=== PATIENT | female | born 1950 | race Caucasian/White ===

== ENCOUNTER → 2021-01-15 | Outpatient (CLI) | payer MEDICARE | LOC: CARD 12:32 | PROVIDERS: ATTEND Physician Assistant | DX: I48.91 Unspecified atrial fibrillation (principal); I11.9 Hypertensive heart disease without heart failure; I34.0 Nonrheumatic mitral (valve) insufficiency | CPT/HCPCS: 93306 ==

== ENCOUNTER → 2021-02-02 | Outpatient (CLI) | payer MEDICARE ==
[~2021-02-02] VITALS: Ht 162 cm; Wt 82.0 kg
[~2021-02-02] MED LIST: REGADENOSON 0.4 MG/5 ML SYR (LEXISCAN) IV ONE
[2021-02-02] MEDS: CATHETER FLUSH 10 ML SYR IV PRN ×2 (07:38→09:25)
[2021-02-02 09:24] VITALS: BP 134/89
--- NOTE | 2021-02-05 08:27 | Cardiology Stress Test Report ---
Stress Test Report Date of Procedure/Referring: Date of Procedure: February 05, 2021 Tomasa Mirza Admitting Physician Center/[facility] Indications: Atrial fibrillation Baseline Heart Rate: 86 Baseline Blood Pressure: Blood Pressure Systolic: 134 Blood Pressure Diastolic: 89 Baseline Vitals Vital Signs Date Time Temp Pulse Resp B/P (MAP) Pulse Ox O2 Delivery O2 Flow Rate FiO2 02/02/21 09:24 82 16 134/89 (104) 98 Room Air Baseline EKG: Baseline EKG: Atrial fibrillation Summary After explaining the procedure to the patient, she signed a consent and then brought to the stress nuclear laboratory. Patient received 0.4 mg Lexiscan for stress test, ECG, heart rate and blood pressure were monitored continuously. Resting and stress dose of radio tracer were injected, imaging was acquired and reviewed in short axis, horizontal long axis and vertical long axis views. TID: 0.93 SSS: 4 SDS: 4 EF: 64 1. Patient tolerated Lexiscan well 2. Breast attenuation with mild decrease uptake at the base of the anterior wall and anteroseptum, probably secondary to the breast attenuation, no significant ischemia or infarction on SPECT images 3. Normal left ventricular size, EF 64%, gated images are unreliable due to underlying atrial fibrillation MONIQUE DAILY MD February 05, 2021 08:26
== END ==
LOC: CARD 07:30
PROVIDERS: ATTEND Physician Assistant
DX: I48.91 Unspecified atrial fibrillation (principal); I10 Essential (primary) hypertension
CPT/HCPCS: 78452; 93017; A9502

== ENCOUNTER → 2021-02-05 | Outpatient (CLI) | payer MEDICARE ==
[~2021-02-05] MED LIST changes: +AMIO200T6 PO; +APIX5TAB PO; +ATOR10TA66 PO; +DAPA10TA PO; +DULO30CA49 PO; +LOSA50TA63 PO; +METO50TA15 PO; -REGADENOSON 0.4 MG/5 ML SYR (LEXISCAN) IV ONE
== END ==
LOC: LABNPT 08:08
PROVIDERS: ATTEND Internal Medicine Cardiovascular Disease
DX: Z20.822 Contact with and (suspected) exposure to COVID-19 (principal)
CPT/HCPCS: 87635

== ENCOUNTER 2021-02-07 09:10 | Day surgery (SDC) | payer MEDICARE ==
[2021-02-07] VITALS (12 sets, daily range): BP systolic 106–170; BP diastolic 68–115
[~2021-02-07] VITALS: Ht 163 cm; Wt 83.3 kg
[2021-02-07] MEDS ORDERED: NS IV 1000 ML 1,000 ML ONE (09:49)
[2021-02-07] MEDS ORDERED: LIDOCAINE 2% VISCOUS 15 ML UDC ONE (09:49)
[2021-02-07] MEDS ORDERED: fentaNYL INJ 100 MCG/2 ML AMP IV ONE (10:00)
[2021-02-07] MEDS ORDERED: LIDOCAINE 2% VISCOUS 15 ML UDC PO ONE (10:00)
[2021-02-07] MEDS ORDERED: MIDAZOLAM 5 MG/5 ML (VERSED) VIAL IV ONE (10:00)
--- NOTE | 2021-02-07 10:18 | Diagnostic Imaging Report ---
Portable erect AP chest at 1013. INDICATION: Afibrillation hypertension There are no prior studies available for comparison. The heart size is at the upper limits of normal. The lungs are clear. There is no evidence for failure, pneumonia or for a pleural effusion to indicate an acute abnormality. The mediastinum is not widened. The osseous structures are intact. IMPRESSION: There is no evidence for active disease. Dictated by: Dictated on workstation # [id number]
[2021-02-07 10:29] LABS: BILIRUBIN,URINE NEGATIVE (NEGATIVE); CLARITY,URINE CLEAR; COLOR,URINE YELLOW; GLUCOSE, URINE (UA) 3+ (NEGATIVE); KETONES,URINE NEGATIVE (NEGATIVE); LEUKOCYTE ESTERASE ,URINE NEGATIVE (NEGATIVE); NITRITE,URINE NEGATIVE (NEGATIVE); PROTEIN,URINE TRACE (NEGATIVE)
[2021-02-07] MEDS ORDERED: METO50TA15 PO (10:30)
[2021-02-07] MEDS ORDERED: APIX5TAB PO (10:30)
[2021-02-07] MEDS: NS IV 1000 ML 1,000 ML IV SCH ×2 (10:30→19:58)
[2021-02-07] MEDS ORDERED: LOSA50TA63 PO (10:30)
[2021-02-07] MEDS ORDERED: ATOR10TA66 PO (10:30)
[2021-02-07] MEDS ORDERED: DAPA10TA PO (10:30)
[2021-02-07] MEDS ORDERED: DULO30CA49 PO (10:30)
[2021-02-07 10:36] LABS: HEMOGLOBIN 16.3 g/dL (11.5-16.0); MEAN PLATELET VOLUME 10.9 fL (9.0-12.2); WHITE BLOOD COUNT 9.1 10^3/uL (4.3-11.0)
[2021-02-07 10:40] LABS: BACTERIA,URINE NEGATIVE /HPF; SQUAMOUS EPITHELIAL CELL,UR 0-2 /HPF
[2021-02-07] MEDS ORDERED: proPOfol 200 MG/20 ML (DIPRIVAN) VIAL IV ONE (10:40)
[2021-02-07] MEDS ORDERED: MIDAZOLAM 2 MG/2 ML (VERSED) VIAL ONE (10:40)
[2021-02-07 10:43] LABS: INR 0.9 (0.8-1.4); PROTHROMBIN TIME PATIENT 12.8 SEC (12.2-14.7)
[2021-02-07 10:50] LABS: ALANINE AMINOTRANSFERASE 13 U/L (0-55); ALBUMIN 3.9 GM/DL (3.2-4.5); ALKALINE PHOSPHATASE 86 U/L (40-136); BILIRUBIN,TOTAL 0.7 MG/DL (0.1-1.0); BUN/CREATININE RATIO 11; CALCIUM 9.6 MG/DL (8.5-10.1); CARBON DIOXIDE 26 MMOL/L (21-32); CHLORIDE 104 MMOL/L (98-107); CHOLESTEROL 222 MG/DL (< 200); GFR ESTIMATED > 60; GLUCOSE 174 MG/DL (70-105); HDL CHOLESTEROL 42 MG/DL (40-60); POTASSIUM 3.6 MMOL/L (3.6-5.0); SODIUM 141 MMOL/L (135-145); TOTAL PROTEIN 7.4 GM/DL (6.4-8.2); TRIGLYCERIDES 256 MG/DL (<150); VLDL CHOLESTEROL 51 MG/DL (5-40)
--- NOTE | 2021-02-07 11:29 | Anesthesia-General Post-Op ---
MAC Patient Condition Mental Status/LOC: Same as Preop Cardiovascular: Satisfactory Nausea/Vomiting: Absent Respiratory: Satisfactory Pain: Controlled Complications: Absent Post Op Complications Complications None Follow Up Care/Instructions Patient Instructions None needed. Anesthesiology Discharge Order Discharge Order Patient is doing well, no complaints, stable vital signs, no apparent adverse anesthesia problems. No complications reported per nursing. IGOR ROYAL CRNA February 07, 2021 11:29
[2021-02-07] MEDS ORDERED: AMIODARONE INJECTION 150 MG in D5W 100 ML IVPB 100 ML IV ONE (11:30)
--- NOTE | 2021-02-07 11:33 | Conscious Sedation/ASA ---
Conscious Sedation Pre-Proced Time 11:00 ASA Score 3 For ASA 3 and 4: Consider anesthesia and medical clearance. Also, for patients with a history of failed moderate sedation consider anesthesia. Airway Lungs Heart ASA score ASA 1: a normal healthy patient ASA 2: a patient with a mild systemic disease (mid diabetes, controlled hypertension, obesity x ASA 3: a patient with a severe systemic disease that limits activity (angina, COPD, prior Myocardial infarction) ASA 4: a patient with an incapacitating disease that is a constant threat to life (CHF, renal failure) ASA 5: a moribund patient not expected to survive 24 hrs. (ruptured aneurysm) ASA 6: a declared brain- patient whose organs are being harvested. For emergent operations, add the letter E after the classification Mallampati Classification Grade 3 Sedation Plan Analgesia, Amnesia, Plan communicated to team members, Discussed options with patient/fam, Discussed risks with patient/fam The patient is an appropriate candidate to undergo the planned procedure, sedation, and anesthesia. The patient immediately re-assessed prior to indication. MONIQUE DAILY MD February 07, 2021 11:33 am
--- NOTE | 2021-02-07 11:35 | Cardioversion ---
Cardioversion PROCEDURE PHYSICIAN: Monique Kidd DATE OF PROCEDURE: 02/07/21 DIRECT EXTERNAL ELECTRICAL CARDIOVERSION: Indications: Atrial Fibrillation with rapid ventricular rate Preoperative diagnoses: Atrial Fibrillation with rapid ventricular rate Postoperative diagnosis: Sinus rhythm, Successful Electrical Cardioversion Anesthesia: By Anesthesia services Complications: None Specimen: None Contrast: 0 Flouroscopy: none Procedure Details: The patient was brought the cardiac catheterization technician after informed consent was taken, all the risks and complications were explained including the risk of stroke. Electrical cardioversion was carried out with anesthesia support with propofol. 200 joules of synchronized shock was delivered through external patches which promptly restored sinus rhythm. The patient tolerated the procedure well. Conclusions: Successful electrical cardioversion with no complication Final Diagnosis: Paroxysmal atrial fibrillation Hypertension Hyperlipidemia MONIQUE KIDD MD February 07, 2021 11:35 am
[2021-02-07] MEDS ORDERED: AMIO200T6 PO (11:37)
--- NOTE | 2021-02-07 11:38 | Discharge Inst-Post CATH ---
Discharge Inst-CATH/EP Problems Reviewed?: Yes Post Cardiac Cath/EP D/C Inst Follow Up/Plan Appointment with Dr. Kidd's office in 1 to 2 weeks <b>CARDIAC CATH/EP PROCEDURE DISCHARGE INSTRUCTIONS</b> ACTIVITY * Go Home directly and rest. * Limit activity of the leg (or wrist if it was used) for 7 days including aer obics, swimming, jogging, bicycling, etc. * Restrict stair-climbing for 7 days if possible, if not, climb up with your non-cath leg, then bring together on the same step. * Avoid lifting, pushing, pulling or excessive movement of the affected extremi ty for 7 days. * Customary sexual activity may be resumed after 2 days-use caution not to use a position that strains or causes pain to the affected extremity. * No driving for 24 hours. * NO SMOKING. * Avoid straining for bowel movements for 7 days. * Gentle walking on level ground is allowed. * Returning to work will depend on the type of procedure and the results. Your doctor will discuss this with you. CALL YOUR DOCTOR FOR ANY OF THE FOLLOWING: *If bleeding from the puncture site occurs- Apply gentle pressure to site with clean cloth and call your doctor or EMS. * If a knot or lump forms under the skin, increases in size, or causes pain. * If bruising appears to be worsening or moving further down your leg instead of disappearing. * Temperature above 101 F. CARE OF YOUR GROIN INCISION; * Bruising or purple discoloration of the skin near the puncture site is common. * You may shower only, no bathtub bathing for 5 days. Be careful to avoid slipping as your leg may feel stiff. * If a closure device was used on your femoral artery, please see the attached guide regarding care of the device and your leg. * Leave dressing on FOR 24 hours. CARE OF YOUR WRIST INCISION; * Bruising or purple discoloration of the skin near the puncture site is common. * You may shower. * DO NOT submerge wrist. * Leave dressing on FOR 24 hours. MONIQUE KIDD MD February 07, 2021 11:38 am
[2021-02-07] MEDS: AMIODARONE 200 MG (CORDARONE) TAB PO SCH ×2 (11:53→20:03)
[2021-02-07] MEDS ORDERED: AMIODARONE INJECTION 450 MG in D5W IV SOLUTION (EXCEL) 250 ML IV SCH (12:45)
[2021-02-07] MEDS: APIXABAN 5 MG (ELIQUIS) TABLET PO SCH (20:03)
[2021-02-07] MEDS: meTOprolol TARTRATE 50 MG (LOPRESSOR) TAB PO SCH (20:03)
[2021-02-07] MEDS ORDERED: hydrALAZINE (APESOLINE) 20 MG/ML VIAL ONE (22:03)
[2021-02-07] MEDS: hydrALAZINE (APESOLINE) 20 MG/ML VIAL IV PRN (22:15)
[2021-02-08 03:22] LABS: BASOPHILS % (AUTO) 0 % (0-10); EOSINOPHILS # (AUTO) 0.1 10^3/uL (0.0-0.3); EOSINOPHILS % (AUTO) 1 % (0-10); HEMATOCRIT 44 % (35-52); HEMOGLOBIN 14.9 g/dL (11.5-16.0); LYMPHOCYTES % (AUTO) 21 % (12-44); MEAN CORPUSCULAR HEMOGLOBIN 31 pg (25-34); MEAN CORPUSCULAR HGB CONC 34 g/dL (32-36); MEAN CORPUSCULAR VOLUME 92 fL (80-99); MEAN PLATELET VOLUME 11.1 fL (9.0-12.2); MONOCYTES # (AUTO) 0.5 10^3/uL (0.0-1.0); MONOCYTES % (AUTO) 5 % (0-12); NEUTROPHILS # (AUTO) 6.5 10^3/uL (1.8-7.8); NEUTROPHILS % (AUTO) 71 % (42-75); PLATELET COUNT 250 10^3/uL (130-400); WHITE BLOOD COUNT 9.2 10^3/uL (4.3-11.0)
[2021-02-08 03:42] LABS: CHLORIDE 107 MMOL/L (98-107); POTASSIUM 3.2 MMOL/L (3.6-5.0); SODIUM 140 MMOL/L (135-145)
[2021-02-08 03:44] LABS: GLUCOSE 163 MG/DL (70-105)
[2021-02-08 03:45] LABS: CARBON DIOXIDE 23 MMOL/L (21-32)
[2021-02-08 03:47] LABS: PHOSPHORUS 3.4 MG/DL (2.3-4.7)
[2021-02-08 03:48] LABS: CREATININE SERUM 0.72 MG/DL (0.60-1.30); GFR ESTIMATED > 60
[2021-02-08 03:49] LABS: BUN/CREATININE RATIO 13
[2021-02-08 03:50] LABS: MAGNESIUM 1.8 MG/DL (1.6-2.4)
[2021-02-08] MEDS: NS IV 1000 ML 1,000 ML IV SCH (03:52)
[2021-02-08] MEDS: hydrALAZINE (APESOLINE) 20 MG/ML VIAL IV PRN (05:53)
[2021-02-08] MEDS ORDERED: MAGNESIUM 1 GM/100 ML IVPB 100 ML IV SCH (06:00)
[2021-02-08] MEDS ORDERED: KCL 20 MEQ TAB (K-DUR) PO SCH (06:00)
[2021-02-08] MEDS ORDERED: POTASSIUM CL 10MEQ/50ML IVPB 50 ML IV SCH (06:00)
[2021-02-08] MEDS ORDERED: NS IV 500 ML 0 ML ONE (07:48)
--- NOTE | 2021-02-08 07:54 | Cardiology Progress Note ---
Subjective Date Seen by Provider: February 08, 2021 Time Seen by Provider: 07:53 Subjective/Events-last exam Patient is laying down in bed, feeling well, back in atrial fibrillation with controlled rate Review of Systems General: No Chills, No Night Sweats; Fatigue; No Malaise, No Appetite, No Other HEENT: No Head Aches, No Visual Changes, No Eye Pain, No Ear Pain, No Dys phasia, No Sinus Congestion, No Post Nasal Drip, No Sore Throat, No Other Pulmonary: No Dyspnea, No Cough, No Pleuritic Chest Pain, No Other Cardiovascular: No: Chest Pain, Palpitations, Orthopnea, Paroxysmal Noc. Dyspnea, Edema, Lt Headedness, Other Objective-Cardiology Exam Last Set of Vital Signs Vital Signs 02/07/21 02/08/21 02/08/21 11:29 05:54 07:36 Temp 36.6 Pulse 62 Resp 16 B/P (MAP) 177/86 (116) Pulse Ox 94 O2 Delivery Room Air O2 Flow Rate 6.00 Capillary Refill : I&O Intake and Output 02/08/21 00:00 Intake Total 659 ml Output Total 200 ml Balance 459 ml Intake Oral 400 ml IV Total 259 ml Output Urine Total 200 ml # Voids 1 General: Alert, Oriented X3, Cooperative HEENT: Atraumatic, PERRLA Neck: Supple, No JVD, No Thyromegaly Lungs: Clear to Auscultation, Normal Air Movement Heart: Normal S1, Normal S2, No Murmurs, Other (Atrial fibrillation) Abdomen: Normal Bowel Sounds, Soft, No Tenderness, No Hepatosplenomegaly, No Masses Extremities: No Clubbing, No Cyanosis, No Edema, Normal Pulses, No Tendern ess/Swelling Skin: No Rashes, No Breakdown, No Significant Lesion Neuro: Normal Gait, Normal Speech, Strength at 5/5 X4 Ext, Normal Tone, Sensation Intact Psych/Mental Status: Mental Status NL, Mood NL Results Lab Laboratory Tests 02/07/21 10:22 02/08/21 02:49 A/P-Cardiology Admission Diagnosis Paroxysmal atrial fibrillation Hypertension Hyperlipidemia Assessment/Plan Paroxysmal atrial fibrillation underwent GAUTAM with electrical cardioversion yesterday, converted to sinus rhythm then return to atrial fibrillation, she was loaded with amiodarone IV bolus and a drip in addition to the oral dose. It appeared that she has been in and out of atrial fibrillation alternating with sinus rhythm. I would continue with amiodarone loading as an outpatient Hypertension, continue to monitor blood pressure Hyperlipidemia, monitor lipids Hypokalemia, being replaced Possible underlying sleep apnea, will consider sleep study as an outpatient MONIQUE DAILY MD February 08, 2021 07:54
--- NOTE | 2021-02-08 07:59 | Conscious Sedation/ASA ---
Conscious Sedation Pre-Proced Time 07:58 ASA Score 3 For ASA 3 and 4: Consider anesthesia and medical clearance. Also, for patients with a history of failed moderate sedation consider anesthesia. Airway Lungs Heart ASA score ASA 1: a normal healthy patient ASA 2: a patient with a mild systemic disease (mid diabetes, controlled hypertension, obesity x ASA 3: a patient with a severe systemic disease that limits activity (angina, COPD, prior Myocardial infarction) ASA 4: a patient with an incapacitating disease that is a constant threat to life (CHF, renal failure) ASA 5: a moribund patient not expected to survive 24 hrs. (ruptured aneurysm) ASA 6: a declared brain- patient whose organs are being harvested. For emergent operations, add the letter E after the classification Mallampati Classification Grade 3 Sedation Plan Analgesia, Amnesia, Plan communicated to team members, Discussed options with patient/fam, Discussed risks with patient/fam The patient is an appropriate candidate to undergo the planned procedure, sedation, and anesthesia. The patient immediately re-assessed prior to indication. MONIQUE DAILY MD February 08, 2021 07:59
[2021-02-08] MEDS ORDERED: KCL 20 MEQ TAB (K-DUR) PO ONE ×2 (08:00→11:00)
[2021-02-08] MEDS: POTASSIUM CL 10MEQ/50ML IVPB 50 ML IV SCH (08:18)
[2021-02-08] MEDS: APIXABAN 5 MG (ELIQUIS) TABLET PO SCH (08:36)
[2021-02-08] MEDS: meTOprolol TARTRATE 50 MG (LOPRESSOR) TAB PO SCH (08:36)
[2021-02-08] MEDS: AMIODARONE 200 MG (CORDARONE) TAB PO SCH (08:36)
[2021-02-08] MEDS ORDERED: NON-FORMULARY MEDICATION 1 EA EA (Dapagliflozin Propanediol (Farxiga) 10 MG) PO SCH (09:00)
[2021-02-08] MEDS ORDERED: DULoxetine 30 MG (CYMBALTA) CAP PO SCH (09:00)
[2021-02-08] MEDS ORDERED: LOSARTAN 50 MG (COZAAR) TAB PO SCH (09:00)
== END 2021-02-08 11:40 | disposition home or self-care (01) ==
LOC: CATH 09:10 → ICU 12:36 → CATH 02-08 11:40
PROVIDERS: ATTEND Internal Medicine Cardiovascular Disease
DX: I48.0 Paroxysmal atrial fibrillation (principal); I10 Essential (primary) hypertension; E78.2 Mixed hyperlipidemia; Z79.01 Long term (current) use of anticoagulants; Z79.899 Other long term (current) drug therapy
CPT/HCPCS: 36415; 71045; 80048; 80053; 80061; 81000; 83735; 84100; 85025; 85027; 85610; 85730; 87081; 87088; 92960; 93005; 93312

== ENCOUNTER 2021-10-23 05:34 | Outpatient (CLI) | payer MEDICARE ==
[~2021-10-23] VITALS: Ht 162.5 cm; Wt 90.0 kg
[~2021-10-23 05:34] MED LIST changes: -AMIO200T6 PO; +AMIO200T65 PO
[2021-10-23] MEDS ORDERED: SEMA7TAB PO (09:05)
== END 2021-12-18 17:35 | disposition home or self-care (01) ==
LOC: PREOP 05:34
PROVIDERS: ATTEND Specialist
DX: Z01.818 Encounter for other preprocedural examination (principal)

== ENCOUNTER 2021-12-07 06:09 | Day surgery (SDC) | payer MEDICARE ==
[~2021-12-07] VITALS: Ht 162.5 cm; Wt 90.0 kg
[~2021-12-07 06:09] MED LIST changes: +SEMA7TAB PO
[2021-12-07] MEDS ORDERED: TIMOLOL MALEATE 0.5% 5 ML (TIMOPTIC) BTL OU PRN (06:15)
[2021-12-07] MEDS ORDERED: MOXIFLOXACIN OPHTH SOLN 5 MG/ML 0.3 ML SYRINGE OP ONE (06:15)
[2021-12-07] MEDS ORDERED: LIDOCAINE PF 1% 2 ML VIAL IR PRN (06:15)
[2021-12-07] MEDS ORDERED: POVIDONE (BETADINE) OPHTH SOLN 5% 30 ML OP ONE (06:15)
[2021-12-07 06:28] VITALS: BP 199/103
[2021-12-07] MEDS: TETRACAINE 0.5% OPHTH SOLN 4 ML BTL (SINGLE DOSE ONLY) OU PRN ×4 (06:29→06:50)
[2021-12-07] MEDS: TROPICAMIDE 1% OPH SOLN (MYDRIACYL) 15 ML BTL OP SCH ×3 (06:37→06:50)
[2021-12-07] MEDS: PHENYLEPHRINE 10% OPHTH (NEO-SYN) 5 ML BTL OU SCH ×3 (06:37→06:50)
--- NOTE | 2021-12-07 06:52 | Ophthalmologist Pre-Op Note ---
Pre-Operative Progress Note H&P Reviewed The H&P was reviewed, patient examined and no changes noted. Date H&P Reviewed: Dec 07, 2021 Time H&P Reviewed: 06:52 Pre-Op Dx Cataract, Right Eye MAGDA HERNÁNDEZ MD Dec 07, 2021 06:52
--- NOTE | 2021-12-07 07:19 | Ophthalmology Operative Report ---
Cataract removal/placement IOL PREOPERATIVE DIAGNOSIS: Cataract Right Eye POSTOPERATIVE DIAGNOSIS: Cataract Right Eye PROCEDURE: Cataract removal and placement of posterior chamber implant, right eye SURGEON: Mikhail Hernández ANESTHESIA: Topical with sedation COMPLICATIONS: None ESTIMATED BLOOD LOSS: Minimal DESCRIPTION OF PROCEDURE: After proper informed consent was obtained, the patient, a 71 female, was taken to the Operating Room and the right eye was anesthetized with tetracaine. The right eye was then prepped and draped in the usual manner. A wire lid speculum was placed. A paracentesis was made at the left hand position. Preservative free lidocaine was injected into the anterior chamber followed by viscoelastic. A clear corneal incision was made in the temporal position. A capsulorrhexis was preformed and the central nuclear and cortical material were removed. The posterior capsule was polished and Nathaniel 28.0 AU00T0 IOL was placed into the capsular bag. The residual viscoelastic was aspirated and balanced saline solution was injected into the anterior chamber. Moxifloxacin was injected into the anterior chamber. The wound was checked and found to be water tight. The patient tolerated the procedure well without complications. MIKHAIL HERNÁNDEZ MD Dec 07, 2021 07:19
[2021-12-07] MEDS ORDERED: acetaZOLAMIDE ER 500 MG CAP (DIAMOX SEQUELS) PO ONE (07:30)
[2021-12-07 07:32] VITALS: BP 206/106
--- NOTE | 2021-12-07 11:53 | Anesthesia-General Post-Op ---
MAC Patient Condition Mental Status/LOC: Same as Preop Cardiovascular: Satisfactory Nausea/Vomiting: Absent Respiratory: Satisfactory Pain: Controlled Complications: Absent Post Op Complications Complications None Follow Up Care/Instructions Patient Instructions None needed. Anesthesiology Discharge Order Discharge Order Patient is doing well, no complaints, stable vital signs, no apparent adverse anesthesia problems. No complications reported per nursing. DOMENICA YATES CRNA Dec 07, 2021 11:53
== END 2021-12-07 07:32 | disposition home or self-care (01) ==
LOC: SDC 06:09
PROVIDERS: ATTEND Specialist
DX: E11.36 Type 2 diabetes mellitus with diabetic cataract (principal); H25.9 Unspecified age-related cataract; Z79.84 Long term (current) use of oral hypoglycemic drugs
CPT/HCPCS: 66984; V2632

== ENCOUNTER 2021-12-21 06:24 | Day surgery (SDC) | payer MEDICARE ==
[~2021-12-21] VITALS: Ht 163 cm; Wt 90.0 kg
[2021-12-21] MEDS ORDERED: POVIDONE (BETADINE) OPHTH SOLN 5% 30 ML OP ONE (06:30)
[2021-12-21] MEDS ORDERED: LIDOCAINE PF 1% 2 ML VIAL IR PRN (06:30)
[2021-12-21] MEDS ORDERED: TIMOLOL MALEATE 0.5% 5 ML (TIMOPTIC) BTL OU PRN (06:30)
[2021-12-21] MEDS ORDERED: MOXIFLOXACIN OPHTH SOLN 5 MG/ML 0.3 ML SYRINGE OP ONE (06:30)
[2021-12-21] MEDS: TETRACAINE 0.5% OPHTH SOLN 4 ML BTL (SINGLE DOSE ONLY) OU PRN ×4 (06:40→07:00)
[2021-12-21 06:44] VITALS: BP 186/94
[2021-12-21] MEDS: PHENYLEPHRINE 10% OPHTH (NEO-SYN) 5 ML BTL OU SCH ×3 (06:49→07:00)
[2021-12-21] MEDS: TROPICAMIDE 1% OPH SOLN (MYDRIACYL) 15 ML BTL OP SCH ×3 (06:49→07:00)
--- NOTE | 2021-12-21 07:59 | Ophthalmologist Pre-Op Note ---
Pre-Operative Progress Note H&P Reviewed The H&P was reviewed, patient examined and no changes noted. Date H&P Reviewed: Dec 21, 2021 Time H&P Reviewed: 07:58 Pre-Op Dx Cataract, Right Eye MAGDA HERNÁNDEZ MD Dec 21, 2021 07:58
[2021-12-21] MEDS ORDERED: acetaZOLAMIDE ER 500 MG CAP (DIAMOX SEQUELS) PO ONE (08:00)
--- NOTE | 2021-12-21 08:07 | Ophthalmologist Pre-Op Note ---
Pre-Operative Progress Note H&P Reviewed The H&P was reviewed, patient examined and no changes noted. Date H&P Reviewed: Dec 21, 2021 Time H&P Reviewed: 08:07 Pre-Op Dx Cataract, Left Eye MAGDA HERNÁNDEZ MD Dec 21, 2021 08:07
--- NOTE | 2021-12-21 08:22 | Ophthalmology Operative Report ---
Cataract removal/placement IOL PREOPERATIVE DIAGNOSIS: Cataract Left Eye POSTOPERATIVE DIAGNOSIS: Cataract Left Eye PROCEDURE: Cataract removal and placement of posterior chamber implant, left eye SURGEON: Mikhail Hernández ANESTHESIA: Topical with sedation COMPLICATIONS: None ESTIMATED BLOOD LOSS: Minimal DESCRIPTION OF PROCEDURE: After proper informed consent was obtained, the patient, a 71 female, was taken to the Operating Room and the left eye was anesthetized with tetracaine. The left eye was then prepped and draped in the usual manner. A wire lid speculum was placed. A paracentesis was made at the left hand position. Preservative free lidocaine was injected into the anterior chamber followed by viscoelastic. A clear corneal incision was made in the temporal position. A capsulorrhexis was preformed and the central nuclear and cortical material were removed. The posterior capsule was polished and an Nathaniel 25.0 AU00T0 was placed into the capsular bag. The residual viscoelastic was aspirated and balanced saline solution was injected into the anterior chamber. Moxifloxacin was injected into the anterior chamber. The wound was checked and found to be water tight. The patient tolerated the procedure well without complications. MIKHAIL HERNÁNDEZ MD Dec 21, 2021 08:22
[2021-12-21 08:31] VITALS: BP 130/70
[2021-12-21] MEDS ORDERED: MIDAZOLAM 2 MG/2 ML (VERSED) VIAL ONE (08:40)
--- NOTE | 2021-12-21 12:48 | Anesthesia-General Post-Op ---
MAC Patient Condition Mental Status/LOC: Same as Preop Cardiovascular: Satisfactory Nausea/Vomiting: Absent Respiratory: Satisfactory Pain: Controlled Complications: Absent Post Op Complications Complications None Follow Up Care/Instructions Patient Instructions None needed. Anesthesiology Discharge Order Discharge Order Patient is doing well, no complaints, stable vital signs, no apparent adverse anesthesia problems. No complications reported per nursing. DOMENICA YATES CRNA Dec 21, 2021 12:48
== END 2021-12-21 08:33 | disposition home or self-care (01) ==
LOC: SDC 06:24
PROVIDERS: ATTEND Specialist
DX: E11.36 Type 2 diabetes mellitus with diabetic cataract (principal); H25.9 Unspecified age-related cataract; Z79.84 Long term (current) use of oral hypoglycemic drugs
CPT/HCPCS: 66984; V2632

== ENCOUNTER → 2023-03-07 | Outpatient (CLI) | payer MEDICARE ==
[~2023-03-07] MED LIST changes: -SEMA7TAB PO; +SEMA7TAB2 PO
== END ==
LOC: CARD 11:14
PROVIDERS: ATTEND Internal Medicine Cardiovascular Disease
DX: I11.9 Hypertensive heart disease without heart failure (principal); I34.0 Nonrheumatic mitral (valve) insufficiency
CPT/HCPCS: 93306